=== PATIENT | female | born 1995 | race African-American/Black ===

== ENCOUNTER 2022-10-07 09:17 | Emergency (ER) | payer OTHER ==
[2022-10-07 09:31] VITALS: BP 130/58; PULSE 79; RESP 20; TEMP 97.6; BMI 27.3
[2022-10-07] MEDS ORDERED: FLUORESCEIN NA 1 EA STRIP OS ONE (10:26)
[2022-10-07] MEDS ORDERED: TETRACAINE 0.5% HCL 0.6ML DROPPER.BOTTLE OS ONE (10:26)
[2022-10-07] MEDS ORDERED: FLUORESCEIN NA 1 EA STRIP ONE (10:34)
[2022-10-07] MEDS ORDERED: TETRACAINE 0.5% OPHTH SOLN 2 ML BOTTLE ONE (10:34)
== END 2022-10-07 11:37 | disposition home or self-care (01) ==
LOC: JERFT 09:17
DX: H57.12 Ocular pain, left eye (principal)
CPT/HCPCS: 99283-25